=== PATIENT | male | born 1975 | race Caucasian/White ===

== ENCOUNTER 2025-03-19 09:29 | Emergency (ER) | payer OTHER, SELFPAY ==
[2025-03-19 09:34] VITALS: BP 109/86
[2025-03-19 11:03] VITALS: BP 131/91
[2025-03-19 11:06] VITALS: BMI 34.3
--- NOTE | 2025-03-19 11:56 | ED.GENMED ---
History of Present Illness
General
Chief Complaint: Fever
Time Seen by Provider: 03/19/25 11:40
History of Present Illness
History of Present Illness:
49-year-old male referred to the ER from urgent care for further evaluation of subjective fever, myalgias and poor appetite over the last several days. Patient returned home from [facility] in [place]. He denies specific tick bite. His
happened to noticed a rash on his back when he was getting changed at urgent care, otherwise he had not noticed any painful or pruritic rashes. He also started using Wegovy 1 week ago and has had 10 pound weight loss this week. He has been eating
and drinking without vomiting, just has noted significant lack of appetite. No change in bowel habits. No urinary difficulty. No recent antibiotic usage.
I reviewed results brought to the ER [facility]. He had a urinalysis which showed 40 ketones, greater than 300 protein, negative nitrites, specific gravity 1.02, negative leukocyte Estrace. Negative COVID flu testing. White
blood count 5.5, hemoglobin 13.4, platelets 206, neutrophils 78, sodium 134, potassium 4, chloride 100, CO2 24, glucose 123, BUN 11, creatinine 1.1. Patient also brings with him an EKG which I independently viewed and interpreted revealing normal
sinus rhythm, rate 75, leftward axis, no ST elevation, this is a normal tracing
Phy Exam
Physical Exam
Physical Exam:
Patient is awake, alert, appears in no acute distress, mucous membranes moist, conjunctiva pink, wearing glasses, heart regular rate and rhythm not murmurs or ectopy, lungs are clear to auscultation without wheezes rales or rhonchi, abdomen is soft
and nontender, there is a 6 cm ovoid area of blanching induration present over the right flank with fine papular appearance, no other rash seen, extremities without edema, GCS is 15
Course
Orders/Labs/Results
Orders:
Orders
03/19/25 11:55
Doxycycline [Vibramycin] 100 mg PO NOW STA
I reviewed all labs from urgent care, very reassuring
Vital Signs
Initial and Last Documented VS:
Initial Vital Signs
Temp Pulse Resp BP Pulse Ox
98.2 F 77 16 109/86 99
03/19/25 09:34 03/19/25 09:34 03/19/25 09:34 03/19/25 09:34 03/19/25 09:34
Last Documented Vital Signs
Temp Pulse Resp BP Pulse Ox
98.2 F 87 18 131/91 100
03/19/25 09:34 03/19/25 11:04 03/19/25 12:00 03/19/25 11:03 03/19/25 11:58
MDM/Problems Addressed
Differential Diagnosis Includes:
Differential diagnosis considered but not limited to adverse medication reaction from new Wegovy, Lyme disease, along with other etiologies considered
Chronic conditions affecting care:
Obesity
*Pulse Oximetry
SaO2: 100
Oxygen Mode of Delivery: Room air
Patient hypoxic: no
*Critical Care Note
Total Time (30-74mins, 75-104mins- exclusive of procedures): Not Applicable
Update Note
Update Note:
I discussed with patient and present at bedside history concerning for Lyme, in particular with rash present on flank. I discussed with him use of oral antibiotics and need for Lyme titer. Patient was stuck several times at urgent care and
nurses here attempted several times to obtain labs without success. Patient is declining further IV attempt but would like to go home so that he could hydrate and obtain outpatient testing. He is provided with prescription to have Lyme titers
drawn. He is given prescription for 2 weeks of doxycycline and referred back to his primary care physician for reevaluation and further care. Patient and expressed understanding of strict return precautions and had no questions prior to
leaving the department
ED Attending Note
-
Portions of this chart may have been created with voice recognition software.� Occasional wrong word or��sound alike� substitutions may have occurred due to the inherent limitations of voice recognition software.
Discharge Plan
Departure
Patient Disposition: Home (Routine Discharge)
Date of Disposition: 03/19/25
Time of Disposition: 12:01
Patient with high blood pressure during this ER visit?: No
Condition: Good
Discharge Problem:
Suspected Lyme disease
Instructions: Lyme disease, Lyme Disease Test
Prescriptions:
New
doxycycline hyclate 100 mg capsule
100 mg PO BID Qty: 28 0RF
Referrals:
UNKNOWN - PT DOES,NOT KNOW [Family Provider]
Activity Restrictions/Additional Instructions:
Please complete course of antibiotics as prescribed. Return to the ER for any concerns including but not limited to inability to eat or drink, fever, worsening rash. Please limit sun exposure as doxycycline may make you more susceptible to
sunburn. Please take antibiotic with food and full glass of water. Please follow-up with your family doctor this week for reevaluation and further care
Interventions
Interventions:
*Risk Screen - Suicide Last Done: 03/19/25 11:14
*General Assessment Last Done: 03/19/25 11:08
*Neglect/Abuse Screening Last Done: 03/19/25 11:12
*ED- Fall Risk Assessment Last Done: 03/19/25 11:08
*ED COVID-19 Vaccine History Last Done: 03/19/25 11:08
*Nursing Disposition Last Done: 03/19/25 13:11
ED- Neurological Assessment Last Done: 03/19/25 11:09
ED-Skin Assessment Last Done: 03/19/25 11:10
Discharge Date and Time
Discharge Date/Time: 03/19/25 13:12
Print Language: DUTCH
[2025-03-19] MEDS: VIBRAMYCIN 100 MG PO (12:09)
== END 2025-03-19 13:12 | disposition home or self-care (01) ==
LOC: EMR 09:29
PROVIDERS: EMERGENCY PHYSICIAN Emergency Medicine
DX: R21 Rash and other nonspecific skin eruption (principal); R50.9 Fever, unspecified; M79.10 Myalgia, unspecified site; R63.0 Anorexia
CPT/HCPCS: 99283